=== PATIENT | female | born 1955 | race Caucasian/White ===

== ENCOUNTER 2021-12-18 19:16 | Emergency (ER) | payer MEDICARE, OTHER ==
[~2021-12-18] VITALS: Ht 160 cm; Wt 64.4 kg
--- NOTE | 2021-12-18 19:33 | NUR ---
pt in room 4a states was in a [facility]va 2 days ago and c/o neck and back pain.
--- NOTE | 2021-12-18 19:48 | NUR ---
Dr. Bradley at bedside for MSE.
[2021-12-18] MEDS ORDERED: OXYC-128 PO (21:05)
--- NOTE | 2021-12-18 21:14 | NUR ---
Patient discharged to home in stable condition. Written and verbal after care instructions given. Patient verbalizes understanding of instructions. Stressed follow up or return to ER for worsening s/s.
[2021-12-18 21:15] VITALS: BP 105/70
== END 2021-12-18 21:15 | disposition home or self-care (01) ==
LOC: ER 19:16
DX: S16.1XXA Strain of muscle, fascia and tendon at neck level, initial encounter (principal); S39.012A Strain of muscle, fascia and tendon of lower back, initial encounter; V49.40XA Driver injured in collision with unspecified motor vehicles in traffic accident, initial encounter; Y92.411 Interstate highway as the place of occurrence of the external cause; E11.9 Type 2 diabetes mellitus without complications
CPT/HCPCS: 72040; 72072; 72100; A4663